=== PATIENT | male | born 1935 | race Caucasian/White ===

== ENCOUNTER 2020-10-16 11:56 | Emergency (ER) | payer OTHER, MEDICARE ==
[2020-10-16 12:00] VITALS: BP 182/60
--- NOTE | 2020-10-16 12:25 | NUR ---
[facility] [employer] RN. Pt states he is unsure why he needed to come to the ED. States that his daughter said she felt that his voice "[id number] funny" on the phone and called the neighbor to take him in. Pt denies complaints.
[2020-10-16 12:57] LABS: BASOPHILS # (AUTO) 0.1 X10'3 (0-0.2); BASOPHILS % (AUTO) 1.2 % (0-1); EOSINOPHILS # (AUTO) 0.1 X10'3 (0-0.9); EOSINOPHILS % (AUTO) 1.5 % (0-6); HEMATOCRIT 27.6 % (42.0-52.0); HEMOGLOBIN 8.5 g/dl (14.0-17.9); LYMPHOCYTES # (AUTO) 1.1 X10'3 (1.1-4.8); LYMPHOCYTES % (AUTO) 18.1 % (21-51); MEAN CORPUSCULAR HEMOGLOBIN 22.4 PG (27.0-31.0); MEAN CORPUSCULAR VOLUME 72.4 FL (78-98); MEAN PLATELET VOLUME 6.9 FL (7.4-10.4); MONOCYTES # (AUTO) 0.6 X10'3 (0-0.9); MONOCYTES % (AUTO) 10.8 % (2-12); NEUTROPHILS % (AUTO) 68.4 % (42-75); PLATELET COUNT 323 X10'3 (140-440); RED BLOOD COUNT 3.81 X10'6 (4.70-6.10); RED CELL DISTRIBUTION WIDTH 17.8 % (11.5-14.5); WHITE BLOOD COUNT 5.8 X10'3 (4.5-11.0)
[2020-10-16 13:12] LABS: ALANINE AMINOTRANSFERASE 20 U/L (12-78); ALBUMIN 3.4 G/DL (3.4-5.0); ALBUMIN/GLOBULIN RATIO 0.9 (1.1-1.5); ALKALINE PHOSPHATASE 96 IU/L (46-116); ANION GAP 8 (8-16); ASPARTATE AMINO TRANSFERASE 55 U/L (10-37); BILIRUBIN,TOTAL 0.5 MG/DL (0.1-1.0); BLOOD UREA NITROGEN 22 MG/DL (7-18); BUN/CREATININE RATIO 14.8 (5.4-32.0); CALCIUM 9.1 MG/DL (8.5-10.1); CHLORIDE 102 MMOL/L (99-107); CREATININE 1.49 MG/DL (0.60-1.10); GLUCOSE 108 MG/DL (70-104); POTASSIUM 3.9 MMOL/L (3.5-5.1); SODIUM 137 MMOL/L (135-145); TOTAL CARBON DIOXIDE 27.5 MMOL/L (24-32); eGFR 45 ML/MIN
[2020-10-16 14:04] LABS: CLARITY,URINE CLEAR (Clear); COLOR,URINE YELLOW (Yellow); GLUCOSE, URINE NEGATIVE (Neg); KETONES,URINE NEGATIVE (Neg); LEUKOCYTE ESTERASE ,URINE NEGATIVE (Neg); NITRITES, URINE NEGATIVE (Neg); OCCULT BLOOD,URINE NEGATIVE (Neg); PROTEIN,URINE NEGATIVE (Neg); UROBILINOGEN,URINE 0.2 E.U/dL (0.2-1.0)
[2020-10-16 14:11] LABS: UA COLLECTION TYPE CLN CATCH MIDSTREAM
== END 2020-10-16 14:22 | disposition home or self-care (01) ==
LOC: ER 11:57
DX: R41.3 Other amnesia (principal); D64.9 Anemia, unspecified; R41.0 Disorientation, unspecified; R44.3 Hallucinations, unspecified
CPT/HCPCS: 36415; 70450; 80053; 81003; 85025; 99284

== ENCOUNTER 2023-10-24 11:02 | Emergency (ER) | payer OTHER, MEDICARE ==
[~2023-10-24] VITALS: Ht 167.6 cm; Wt 63.6 kg
[~2023-10-24 11:02] MED LIST: ASPI81TA52 PO; ATOR40TA72 PO; MIDO5TAB4 PO
[2023-10-24 11:11] VITALS: PULSE 60
[2023-10-24 15:32] VITALS: BP 149/85; RESP 16; TEMP 98; O2SAT 100
== END 2023-10-24 15:41 | disposition home or self-care (01) ==
LOC: ER 11:02
DX: S82.832A Other fracture of upper and lower end of left fibula, initial encounter for closed fracture (principal); Z79.82 Long term (current) use of aspirin; Z79.899 Other long term (current) drug therapy; W19.XXXA Unspecified fall, initial encounter; Y93.89 Activity, other specified; Y92.89 Other specified places as the place of occurrence of the external cause; Y99.8 Other external cause status
CPT/HCPCS: 73610; 73630; 99284; L4360